=== PATIENT | male | born 1950 | race Caucasian/White ===

== ENCOUNTER → 2016-09-27 | Outpatient (CLI) | payer OTHER ==
[~2016-09-27] MED LIST: ACTOS30 MG PO; BAYER ASPIRIN325 M1 PO; CRESTOR PO; GLUCOTROL PO; METFORMIN PO
--- NOTE | ~2016-09-27 | US128 ---
[id number] [facility] [address]. [place], [place] [address] [id number] O MR#: [id number] Acc #: [id number] NAME: JANEEN ROSARIO : 1950 SEX: M STUDY DATE/TIME: 09/27/2016 13:25 UNIT: [facility]US ROOM: STUDY DESCRIPTION: Thyroid Attending Physician: Ezequiel Caballero M.D. Referring Physician: Ezequiel Caballero M.D. Ordering Physician: Ezequiel Caballero M.D. Primary Care Physician: Trixie Valdivia M.D. MEDICAL IMAGING REPORT This report is preliminary unless electronic signature is present EXAM Thyroid ultrasound, 09/27/2016 HISTORY Followup bilateral thyroid nodules. FINDINGS The right thyroid lobe measured 4.0 cm x 2.1 cm x 4.4 cm while the left lobe measured 4.3 cm x 2.7 cm x 1.6 cm. The isthmus measured 4.0 mm in the AP direction. Both thyroid lobes are heterogeneous in echotexture. There is a 2.9 cm x 1.8 cm x 2.9 cm nodule in the midportion of the right thyroid lobe and there is a 2.1 cm x 2.2 cm x 1.6 cm nodule in the mid left thyroid lobe. Compared with 04/13/2016, there has been no significant interval change. There are no masses extrinsic to the thyroid. Normal blood flow is seen throughout both thyroid lobes. IMPRESSION No significant interval change in the bilateral thyroid nodules compared with 04/13/2016. Dictated by... Gabriele Sepulveda M.D. THIS IS AN ELECTRONICALLY VERIFIED REPORT Gabriele Sepulveda M.D. at 09/28/2016 1:45 PM PAUL/baldev TD: 09/28/2016 12:03 JOB #: [id number] MEDICAL IMAGING REPORT Page 1 of 1 COPY
== END | disposition home or self-care (01) ==
LOC: CGUS 13:02
DX: E04.2 Nontoxic multinodular goiter (principal)
CPT/HCPCS: 76536